=== PATIENT | male | born 1960 | race Caucasian/White ===

== ENCOUNTER → 2016-09-14 | Outpatient (CLI) | payer MEDICARE, OTHER ==
[~2016-09-14] VITALS: Ht 180.3 cm; Wt 87.5 kg
[~2016-09-14] MED LIST: CLOZARIL100 MG ORAL; IRON325 M1 PO; VITAMIN D400 INTLU ORAL
--- NOTE | 2016-09-14 14:43 | GI Initial Consult Note ---
History of Present Illness General Date patient seen: Sep 14, 2016 Time patient seen: 14:33 Referring physician: VAMSHI Reason for Consultation: BLOODY STOOLS Present Illness HPI 56 year old male referred to [facility] by Dr. Ma for reports of bright red bloody stools q 2 weeks per patient. No other general GI complaints at this time. The patient presents today tachycardic ~ 110, states that this is his baseline. Home Meds Reported Medications Ferrous Sulfate (IRON) Unknown Strength Tablet, PO, TAB 09/14/16 Vitamin D (Vitamin D3) Unknown Strength Tablet, ORAL DAILY, TAB 09/14/16 Clozapine* (CLOZARIL*) Unknown Strength Tablet, ORAL EVERY 12 HOURS, TAB 09/14/16 Med list reviewed/reconciled: Yes Allergies: Coded Allergies: No Known Allergies (Unverified , 09/14/16) Patient History Limited by: medical condition History Provided By: Patient PMH Narrative Schizophrenia Tachycardia PSHx, denies Family History Narrative denies Social History: Reports: alcohol use - social q week, other - coffee (pt parent @ bedside states he drinks too much), smoking - 20+ years Review of Systems All Other Systems: negative except mentioned in HPI Physical Exam T 98.2 BP 111/78 P 114 96 RA Ht 5'11 Wt 193.7, denies any unintentional weight loss Sp02 EP Interpretation: reviewed General Appearance: well appearing, no apparent distress, alert Head: normocephalic EENT: normal ENT inspection Neck: supple Respiratory: normal breath sounds, no respiratory distress Cardiovascular: tachycardia Gastrointestinal: soft Rectal: deferred Musculoskeletal: normal inspection Neurologic: normal inspection, alert, oriented x3, responsive Psychiatric: normal inspection, judgement/insight normal, memory normal Skin: normal inspection, normal color, no rash, warm/dry Lymphatic: normal inspection, no adenopathy GI: Plan Problems: (1) Colonoscopy planned (2) Schizophrenia (3) Tachycardia (4) Constipation Plan EGD/colonoscopy scheduled for 09/28/16 - [facility] & [employer] prep instructions given and acknowledged - EKG prior to endoscopy Rx Linzess Seen with Dr. Mckinney. Thank you for referring this kind patient. Josee Meade N.P. Sep 14, 2016 14:43
[2016-09-14 15:44] VITALS: BP 111/78
== END | disposition home or self-care (01) ==
LOC: PAN 13:40
DX: K59.00 Constipation, unspecified (principal); R00.0 Tachycardia, unspecified; F20.9 Schizophrenia, unspecified; F17.200 Nicotine dependence, unspecified, uncomplicated
CPT/HCPCS: 99201

== ENCOUNTER → 2016-09-28 | Day surgery (SDC) | payer MEDICARE, MEDICAID ==
[2016-09-28] VITALS (9 sets, daily range): BP systolic 113–147; BP diastolic 74–88
[~2016-09-28] VITALS: Ht 180.3 cm; Wt 83.9 kg
[~2016-09-28] MED LIST changes: +DiphenhydrAMINE 50mg/ml Inj IVP PRN; +LR 1000ml 1,000 ML IVLG SCH; +LR 1000ml ONE; +Labetalol 5mg/ml 20ml vial IV PRN; +Lidocaine 1% MPF 10mg/ml 5ml ONE; +Propofol 10mg/ml 20ml IV ONE
--- NOTE | 2016-09-28 10:02 | Anethesia Preoperative Eval ---
Anesthesia Pre-op PMH/ROS General Date of Evaluation: Sep 28, 2016 Anesthesiologist: Raymon ASA Score: ASA 2 Mallampati Score Class I : Soft palate, uvula, fauces, pillars visible Class II: Soft palate, uvula, fauces visible Class III: Soft palate, base of uvula visible Class IV: Only hard plate visible Mallampati Classification: Class II Surgeon: Faye Diagnosis: blood in stools Surgical Procedure: EGD and colonoscopy Anesthesia History: none Family History: no anesthesia problems Allergies: Coded Allergies: No Known Allergies (Unverified , 09/14/16) Medications: see eMAR Past Medical History Cardiovascular: Reports: HTN, Denies: CAD, CO, arrhythmia, other, valve dz Pulmonary: Denies: COPD, REJI, asthma, other Gastrointestinal/Genitourinary: Denies: CRI, ESRD, GERD, other Neurologic/Psychiatric: Reports: other - schizophrenia, Denies: CVA, TIA, dementia, depression/anxiety Endocrine: Denies: DM, hypothyroidism, other, steroids HEENT: Denies: GAMBELL (L), GAMBELL (R), cataract (L), cataract (R), glaucoma, other Hematology/Immune: Denies: DVT, anemia, bleeding disorder, other Musculoskeletal/Integumentary: Denies: DDD, DJD, OA, RA, edema, other Anesthesia Pre-op Phys. Exam Physician Exam Last Vital Signs Date Time Temp Pulse Resp B/P Pulse Ox O2 Delivery O2 Flow Rate FiO2 09/28/16 09:35 98.3 96 18 124/83 96 Room Air Constitutional: NAD Cardiovascular: RRR Respiratory: CTA Airway Exam Mallampati Score: Class II Anesthesia Pre-op A/P Labs see chart Studies Pre-op Studies: EKG - sr Risk Assessment & Plan Assessment: ASA II Plan: MAC Status Change Before Surgery: No Pre-Antibiotics Drug: N/A LOLA MILLER M.D. Sep 28, 2016 10:02
--- NOTE | 2016-09-28 10:04 | Immediate Post-Op Evaluation ---
Immediate Post-Op Evalulation Immediate Post-Op Evalulation Procedure: EGD and colonoscopy Date of Evaluation: Sep 28, 2016 Time of Evaluation: 11:09 IV Fluids: 400 Blood Products: 0 Estimated Blood Loss: 0 Urinary Output: 0 Blood Pressure Systolic: 113 Blood Pressure Diastolic: 74 Pulse Rate: 95 Respiratory Rate: 16 O2 Sat by Pulse Oximetry: 99 Temperature (Fahrenheit): 97.6 Pain Score (1-10): 0 Nausea: No Vomiting: No Complications 0 Patient Status: awake, reacts, patent, none Hydration Status: adequate Drug: N/A LOLA MILLER M.D. Sep 28, 2016 10:03
--- NOTE | 2016-09-28 10:04 | 48 Hour Post Anesthesia Eval ---
Post Anesthesia Evaluation Procedure: EGD and colonoscopy Date of Evaluation: Sep 28, 2016 Blood Pressure Systolic: 114 0: 77 Pulse Rate: 94 Respiratory Rate: 16 O2 Sat by Pulse Oximetry: 99 Airway: patent Nausea: No Vomiting: No Pain Intensity: 0 Hydration Status: adequate Cardiopulmonary Status: at baseline Mental Status/LOC: patient returned to baseline Post-Anesthesia Complications: 0 Follow-up care needed: ready to discharge LOLA MILLER M.D. Sep 28, 2016 10:04
--- NOTE | 2016-09-28 10:58 | Pre-Procedure Note/Attestation ---
Pre-Procedure Note/Attestation Complete Prior to Procedure Planned Procedure: not applicable Procedure Narrative: egd/colon Indications for Procedure Pre-Operative Diagnosis: rectal bleed Attestation I attest that I discussed the nature of the procedure; its benefits; risks and complications; and alternatives (and the risks and benefits of such alternatives ), prior to the procedure, with the patient (or the patient's legal sales representative public utilities). I attest that, if there was a reasonable possibility of needing a blood transfusion, the patient (or the patient's legal sales representative public utilities) was given the [facility] standardized written summary, pursuant to the Tavo [place] Blood Safety Act ([place] Health and Safety Code # 1645, as amended). I attest that I re-evaluated the patient just prior to the surgery and that there has been no change in the patient's H&P, except as documented below: TRICIA PARKER Sep 28, 2016 10:58
--- NOTE | 2016-09-28 10:59 | Short Stay Surgery H&P ---
History of Present Illness History of Present Illness Chief Complaint rectal bleed CEE Ma is a 56 year old male who was admitted on for Blood In Stool Patient History Allergies: Coded Allergies: No Known Allergies (Unverified , 09/14/16) PAST MEDICAL HISTORY: (1) Schizophrenia (2) Tachycardia (3) Constipation Past Surgeries: Social History: Medication History Scheduled Clozapine* (Clozaril*), Unknown Dose ORAL EVERY 12 HOURS, (Reported) Vitamin D (Vitamin D3), Unknown Dose ORAL DAILY, (Reported) Miscellaneous Medications Ferrous Sulfate (Iron), Unknown Dose PO, (Reported) Review of Systems Cardiovascular: Reports: no symptoms Respiratory: Reports: no symptoms Skeletal: Reports: no symptoms Gastrointestinal: Reports: no symptoms Genitourinary: Reports: no symptoms Neurologic: Reports: no symptoms Endocrine: Reports: no symptoms Hematologic: Reports: no symptoms Physical Exam Vital Signs Last Vital Signs Date Time Temp Pulse Resp B/P Pulse Ox O2 Delivery O2 Flow Rate FiO2 09/28/16 09:35 98.3 96 18 124/83 96 Room Air Skin: normal HENT: normal Heart: normal Lungs: normal Abdomen: normal Extremities: normal Plan Plan of Care colonoscopy,EGD Final Diagnosis: Attestation Are the patient's medical conditions optimized for surgery? Attestation Response: yes TRICIA PARKER Sep 28, 2016 10:59
--- NOTE | 2016-09-28 11:00 | Endoscopy Procedure Note ---
Endoscopy Procedure Note Indication for Procedure: rectal bleed Procedures Performed: EGD, colonoscopy Operative Findings/Diagnosis: gastritis Specimen: yes Pt Tolerated Procedure Well: Yes Estimated Blood Loss: none Anesthesiologist: sriram Anesthesia: MAC Implant(s) used?: No 50 yrs or older w/o bx or poly: Yes 10yrs. F/U not recommended: Yes If not recommended, why?: Above average risk 10 yrs. F/U needed: Yes 18 years or older w/prev. colo: No TRICIA PARKER Sep 28, 2016 11:00
--- NOTE | 2016-09-28 21:08 | Procedure Note ---
DATE OF PROCEDURE: 09/28/2016 SURGEON: Carlito Conte M.D. PROCEDURE: Upper endoscopy with biopsy and colonoscopy. ANESTHESIOLOGIST: Dr. Bates. INSTRUMENT: Olympus adult flexible upper endoscope and colonoscope. INDICATION: Blood seen in the stool and screening colonoscopy evaluation. REASON FOR PROCEDURE: The procedure, risks, benefits, and possible consequences, including hemorrhage, aspiration, perforation and infection, and alternative treatments, were explained to the patient/legal guardian by Dr. Carlito Mckinney and the patient/legal guardian understood and accepted these risks. DESCRIPTION OF PROCEDURE: After informed consent was obtained and the patient was adequately sedated, Olympus upper endoscope was advanced from mouth into the second portion of the duodenum and retroflexion was performed of the stomach. The patient had evidence of diffuse gastritis. Random biopsy from antrum was obtained to rule out H. pylori infection. At this time, the upper endoscope was retrieved and the patient was turned over for colonoscopy. First, a rectal exam was performed, which shows normal. Then, the scope was advanced from the rectum into the area that seems to be cecum, but unfortunately, the quality of prep was poor, so we could not see any good landmarks, but it seemed to be way in the cecum. As I mentioned, quality of prep was not good, so this colonoscopy examination was not complete and adequate, but we did not see any obvious tumor, no obvious polyp, no obvious diverticulosis, and no obvious source for gastrointestinal bleeding at this time. Retroflexion of rectum showed evidence of internal hemorrhoids. The patient tolerated the procedure well without any complication. SUMMARY OF FINDINGS: 1. Gastritis, status post biopsy. 2. Internal hemorrhoids. 3. Poor colonoscopy prep. RECOMMENDATIONS: Follow up biopsies and treat accordingly. Carlito Mckinney M.D. DR: NANO JOB#: [id number] CC:
--- NOTE | 2016-10-04 18:29 | Cardiology Report ---
APPROVED REPORT EKG Measurement Heart [id number] Normal sinus rhythm Normal ECG
== END | disposition home or self-care (01) ==
LOC: GAS 08:48
DX: Z12.11 Encounter for screening for malignant neoplasm of colon (principal); K64.8 Other hemorrhoids; K62.5 Hemorrhage of anus and rectum; K29.50 Unspecified chronic gastritis without bleeding; B96.81 Helicobacter pylori [H. pylori] as the cause of diseases classified elsewhere; K59.00 Constipation, unspecified; I10 Essential (primary) hypertension; F20.9 Schizophrenia, unspecified
CPT/HCPCS: 43239; 93005; G0121; J2704; J7120; 94003; 94150

== ENCOUNTER → 2016-10-13 | Outpatient (CLI) | payer MEDICARE, MEDICAID ==
[~2016-10-13] MED LIST changes: -DiphenhydrAMINE 50mg/ml Inj IVP PRN; -LR 1000ml 1,000 ML IVLG SCH; -LR 1000ml ONE; -Labetalol 5mg/ml 20ml vial IV PRN; -Lidocaine 1% MPF 10mg/ml 5ml ONE; -Propofol 10mg/ml 20ml IV ONE
--- NOTE | 2016-10-13 11:07 | GI Progress Note ---
Assessment/Plan Problems: (1) H. pylori infection ICD Codes: A04.8 - Other specified bacterial intestinal infections (2) Constipation ICD Codes: K59.00 - Constipation, unspecified SNOMED: 13918425 (3) Tachycardia ICD Codes: R00.0 - Tachycardia, unspecified SNOMED: 7383788 Status: stable Status Narrative Seen with Dr. Mckinney. Assessment/Plan H. Pylori treatment >> amox + biaxin + omeprazole rx miralax RTC x 3 months for retest Subjective Gastrointestinal/Abdominal: Reports: constipated Objective T 98.4 BP 113/78 P 125 General Appearance: no apparent distress, alert Cardiovascular: tachycardia Respiratory/Chest: normal breath sounds, no respiratory distress Abdominal Exam: normal bowel sounds, non tender, soft Objective EGD/colonoscopy 09/28/16 >> HP positive, poor prep Josee Meade N.P. Oct 13, 2016 11:07
[2016-10-13 16:54] VITALS: BP 113/78
== END | disposition home or self-care (01) ==
LOC: PAN 10:16
DX: A04.8 Other specified bacterial intestinal infections (principal); K59.00 Constipation, unspecified; R00.0 Tachycardia, unspecified
CPT/HCPCS: 99211